=== PATIENT | female | born 1990 | race Caucasian/White ===

== ENCOUNTER 2016-11-13 06:34 | Emergency (ER) | payer OTHER ==
[~2016-11-13] VITALS: Ht 160 cm; Wt 53.1 kg
[~2016-11-13 06:34] MED LIST: IBUPROFEN800 M1 PO; KEFLEX500 M1 PO; NITROFURANTOIN100 M6 PO; PROBIOTIC1 EACH PO; ZOFRAN ODT4 M1 PO
[2016-11-13 06:48] VITALS: BP 120/74
--- NOTE | 2016-11-13 07:20 | ED GENERAL ADULT ---
See Addendum History of Present Illness General Chief Complaint: Fever Stated Complaint: FEVER, QUIJANO Source: patient Exam Limitations: no limitations Vital Signs & Intake/Output Vital Signs & Intake/Output Vital Signs Date Time Temp Pulse Resp B/P B/P Pulse O2 O2 Flow FiO2 Mean Ox Delivery Rate 11/13 0648 97.1 114 18 120/74 99 Room Air Allergies Coded Allergies: sulfamethoxazole (From BACTRIM) (CHILDHOOD ALLERGY 03/06/16) trimethoprim (From BACTRIM) (CHILDHOOD ALLERGY 03/06/16) Uncoded Allergies: ENVIRONMENTAL ALLERGIES (Severe, BREAK OUT IN HIVES 02/25/12) CONTROL (PER PT WAS PRESCRIBED 3 DIFFERENT KINDS AND UNSURE 03/06/16) Reconcile Medications Cephalexin (Keflex) 500 MG CAPSULE 1 CAP PO TID UTI Ibuprofen 800 MG TABLET 1 TAB PO Q8 PRN PAIN/FEVERS Lactobacillus Acidophilus (Probiotic) 10 BILLION CELL CAPSULE 1 CAP PO DAILY PROBIOTIC (Reported) Nitrofurantoin Monohyd/M-Cryst (Nitrofurantoin Archer-Mcr 100 MG) 100 MG CAPSULE 1 CAP PO BID ANTIBIOTIC (Reported) Ondansetron (Zofran Odt) 4 MG TAB.RAPDIS 1 TAB PO Q8H PRN NAUSEA Triage Note: STARTED HAVING HEADACHE YESTERDAY THEN DEVELOPED FEVER OF UP TO 100.6 Triage Nurses Notes Reviewed? yes Onset: Abrupt Duration: hour(s): Timing: recent history : No Patient currently breastfeeds: No HPI: 11/13/16 7:32 AM 26-year-old female presents to the emergency department for fever and malaise. According to the patient she was in her usual state of health until the end of last week when she developed some diarrhea and abdominal cramps. This resolved. Now over the past 24 hours she's had low-grade fever and a mild frontal headache. The fever was 101. She denies cough, abdominal pain, dysuria, rash or other complaints. The onset of the symptoms was abrupt, the duration has been the past several days, the severity significant as her symptoms required her to come to the emergency department for care. She has a past medical history of posttraumatic stress disorder. This was related to her finding out that her had HIV. She has been tested several times including recently and these have all come back negative according to the patient. Past History Travel History Traveled to [place] past 21 day No Medical History Any Pertinent Medical History? 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 No Review of Systems Review of Systems Constitutional: Reports: no symptoms. Respiratory: Denies: cough, short of breath. Cardiovascular: Reports: no symptoms. GI: Reports: no symptoms. Genitourinary: Reports: no symptoms. Musculoskeletal: Reports: no symptoms. Skin: Reports: no symptoms. Neurological/Psychological: Reports: headache. Hematologic/Endocrine: Reports: no symptoms. Immunologic/Allergic: Reports: no symptoms. All Other Systems: Reviewed and Negative Physical Exam Physical Exam General Appearance: well developed/nourished, alert, awake, anxious, mild distress Head: atraumatic, normal appearance Eyes: Bilateral: normal appearance, EOMI. Ears, Nose, Throat: pharyngeal erythema Neck: normal inspection, supple Respiratory: normal breath sounds, chest non-tender, no respiratory distress Cardiovascular: regular rate/rhythm Peripheral Pulses: 4+ radial (R), 4+ radial (L) Gastrointestinal: soft, non-tender Back: normal inspection Extremities: normal inspection, normal capillary refill, normal range of motion Neurologic/Psych: no motor/sensory deficits, awake, alert, oriented x 3 Skin: intact, normal color, warm/dry Comments: No nuchal rigidity, negative Kernig's or Brudzinski sign. No rash Physical exam unremarkable other than mild pharyngeal erythema Labs have been sent and a quick strep was ordered Core Measures ACS in differential dx? No CVA/TIA Diagnosis: No Severe Sepsis Present: No Septic Shock Present: No Progress Differential Diagnoses I considered the following diagnoses in my evaluation of the patient: [Viral syndrome, pharyngitis, Lyme disease, anaplasmosis, pneumonia, bronchitis, meningitis, sinusitis] Plan of Care: Orders Procedure Date/time Status THROAT CULTURE W/QUICK STREP 11/13 730 Active LYME TITRE 11/13 730 Active HUMAN BETA HCG SCREEN 11/13 730 Complete COMPREHENSIVE METABOLIC PANEL 11/13 730 Complete CBC WITHOUT DIFFERENTIAL 11/13 730 Active Laboratory Tests 11/13/16 0746: Anion Gap 10, Estimated GFR > 60, BUN/Creatinine Ratio 15.0, Glucose 97, Calcium 9.2, Total Bilirubin 0.8, AST 23, ALT 30, Alkaline Phosphatase 76, Total Protein 7.6, Albumin 4.6, Globulin 3.0, Albumin/Globulin Ratio 1.5, Total Beta HCG NEGATIVE, CBC w Diff MAN DIFF ORDERED, RBC 4.37, MCV 88.6, MCH 30.2, RDW 12.8, MPV 7.9, Gran % 84.8 H, Lymphocytes % 9.5 L, Monocytes % 5.3, Eosinophils % 0.1, Basophils % 0.3, Absolute Granulocytes 12.3 H, Segmented Neutrophils Pending, Absolute Lymphocytes 1.4, Absolute Monocytes 0.8 H, Absolute Eosinophils 0, Absolute Basophils 0, PUBS MCHC 34.1, Lyme Disease Antibody Pending Initial ED EKG: none Departure Departure Disposition: STILL A PATIENT Condition: Stable Clinical Impression Primary Impression: Fever Referrals: CLINTON LIND,PAPITO Guzman (PCP/Family) Departure Forms: Customer Survey General Discharge Information Comments 11/13/16 Labs reveal leukocytosis. The patient's physical exam is essentially unremarkable other than injected pharynx. Strep culture and Lyme titer are pending. She will follow-up with her doctor this week. She was empirically treated with amoxicillin 500 mg twice a day for 10 days. Critical Care Note Critical Care Note Critical Care Time: non-applicable
[2016-11-13 08:11] LABS: ABSOLUTE BASOPHIL COUNT 0 /CUMM (0.0-0.2); ABSOLUTE EOSINOPHIL COUNT 0 /CUMM (0.0-0.7); ABSOLUTE GRANULOCYTE CT 12.3 /CUMM (1.4-6.5); ABSOLUTE LYMPH COUNT 1.4 /CUMM (1.2-3.4); ABSOLUTE MONOCYTE COUNT 0.8 /CUMM (0.10-0.60); BASOPHIL % 0.3 % (0.0-2.0); EOSINOPHIL % 0.1 % (0-5); GRANULOCYTE % 84.8 % (42.2-75.2); HEMATOCRIT 38.7 % (37-47); MEAN CORPUSCULAR HGB 30.2 PG (27.0-31.0); MEAN CORPUSCULAR HGB CONC 34.1 G/DL (33.0-37.0); MEAN CORPUSCULAR VOLUME 88.6 FL (81.0-99.0); MEAN PLATELET VOLUME 7.9 FL (7.4-10.4); PLATELET COUNT 268 /CUMM (130-400); RBC DISTRIBUTION WIDTH 12.8 % (11.5-14.5); RED BLOOD CELL CT 4.37 /CUMM (4.20-5.40); WHITE BLOOD CELL COUNT 14.5 /CUMM (4.8-10.8)
== END 2016-11-13 09:52 ==
LOC: ERH 06:34
PROVIDERS: Emergency Medicine
DX: R50.9 Fever, unspecified (principal); R11.0 Nausea; D72.829 Elevated white blood cell count, unspecified
CPT/HCPCS: 86618

== ENCOUNTER 2018-01-09 22:25 | Emergency (ER) | payer OTHER ==
[~2018-01-09] VITALS: Ht 160 cm; Wt 52.2 kg
[~2018-01-09 22:25] MED LIST changes: +GABAPENTIN100 M2 PO; +ZOFRAN ODT4 M1 SL
--- NOTE | 2018-01-09 23:44 | ED CARDIAC/CP/PALPITATIONS ---
History of Present Illness General Chief Complaint: Chest Pain Stated Complaint: CP Source: patient Exam Limitations: no limitations Allergies Coded Allergies: sulfamethoxazole (From BACTRIM) (CHILDHOOD ALLERGY 03/06/16) trimethoprim (From BACTRIM) (CHILDHOOD ALLERGY 03/06/16) Uncoded Allergies: ENVIRONMENTAL ALLERGIES (Severe, BREAK OUT IN HIVES 02/25/12) CONTROL (PER PT WAS PRESCRIBED 3 DIFFERENT KINDS AND UNSURE 03/06/16) Reconcile Medications Lactobacillus Acidophilus (Probiotic) 10 BILLION CELL CAPSULE 1 CAP PO DAILY PROBIOTIC (Reported) Metoprolol Tartrate 25 MG TABLET 1 TAB PO BID PRN palpitations May repeat 1 tab in 45 minutes if still with rapid HR Triage Note: PT TO TRIAGE 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 PT STATES THE PAST TWO DAYS SHE HAS HAD MIDSUBSTERNAL NONRADIATING CP AND A FAST HR EVEN AT REST. HR IN TRIAGE 112. PT REPORTS SOB WITH EXERTION. EKG READING SINUS TACH. Triage Nurses Notes Reviewed? 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 Patient states that prior to having surgery she would have on and off tachycardia and symptoms related to her condition. She is early gone through one procedure on the right side of her neck and did well postop. Since yesterday patient has had tachycardia even while at rest and reports fluttering sensation substernally. Patient is very tearful at this time, she does report increasing stress regarding her tachycardia. 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 (Jasmyne MCGINNIS,Beth Blancas) Vital Signs & Intake/Output Vital Signs & Intake/Output Vital Signs Date Time Temp Pulse Resp B/P B/P Pulse O2 O2 Flow FiO2 Mean Ox Delivery Rate 01/10 0253 95 118/64 01/10 0253 98.1 95 16 118/64 97 Room Air 01/10 0128 96 (Jenifer LIND,Jose) Past History Travel History Traveled to [place] past 21 day No Medical History Any Pertinent Medical History? 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 No (Beth Mckee) Review of Systems Review of Systems Constitutional: Reports: no symptoms. EENTM: Reports: no symptoms. Respiratory: Reports: no symptoms. Cardiovascular: Reports: see HPI. GI: Reports: no symptoms. Genitourinary: Reports: no symptoms. Musculoskeletal: Reports: no symptoms. Skin: Reports: no symptoms. Neurological/Psychological: Reports: no symptoms. Hematologic/Endocrine: Reports: no symptoms. Immunologic/Allergic: Reports: no symptoms. All Other Systems: Reviewed and Negative (Beth Mckee) Physical Exam Physical Exam General Appearance: well developed/nourished, no apparent distress, alert, awake , anxious Head: atraumatic, normal appearance Eyes: Bilateral: normal appearance. Ears, Nose, Throat: hearing grossly normal Neck: normal inspection, supple, full range of motion Respiratory: normal breath sounds, no respiratory distress, lungs clear Cardiovascular: tachycardia Back: normal inspection, normal range of motion Neurologic/Psych: awake, alert, oriented x 3, tearful and anxious Skin: intact, normal color, warm/dry Core Measures ACS in differential dx? No CVA/TIA Diagnosis No Sepsis Present: No Sepsis Focused Exam Completed? No (Beth Mckee) Progress Differential Diagnosis: hyperkalemia, hyperventilation, PSVT, pulmonary embolism , anxiety, eagles syndrome Diagnostic Imaging: Viewed by Me: Radiology Read. Discussed w/RAD: Radiology Read. CXR Impression: PATIENT: JESSE ABDALLA PRESENT AGE: 27 PATIENT ACCOUNT NO: [id number] : 89 LOCATION: [facility] ORDERING PHYSICIAN: Beth MCGINNIS SERVICE DATE: 01/09/186170 EXAM TYPE: RAD - XRY-CHEST XRAY, TWO VIEWS EXAMINATION: XR CHEST CLINICAL INFORMATION: Shortness of breath. Chest pain. COMPARISON: Chest x-ray February 25, 2012 TECHNIQUE: 2 views of the chest were obtained. FINDINGS: No significant abnormality is noted involving the heart, lungs, mediastinum, bony thorax or soft tissues. IMPRESSION: Unremarkable examination. DICTATED BY: Shemar Tom MD DATE/TIME DICTATED:01/10/1844 HUMANITIES DIVISION CHAIR:KAROLINA DATE/TIME TRANSCRIBED:01/10/1844 CONFIDENTIAL, DO NOT COPY WITHOUT APPROPRIATE AUTHORIZATION. <Electronically signed in Other Vendor System> SIGNED BY: Shemar Tom MD 01/10/1848 Initial ED EKG: sinus tachycardia @104bpm, nonspecific ST changes Hand-Off Endorsed To: Jose Burgess MD Endorsed Time: 0124 Pending: labs (Beth Mckee) Plan of Care: Orders Procedure Date/time Status D-DIMER 01/09 2350 Complete Given tachycardia following the patient's recent surgery will obtain d-dimer to assess for pulmonary embolism. Patient is very anxious, almost tearful on exam. I offered her anxiolytics however she declines. EKG shows sinus tachycardia. Chest x-ray is stable. Troponin enzyme negative. Patient was signed out to Dr. gage pending d-dimer. (Beth Mckee) (Jose Burgess MD) Departure Departure Disposition: HOME OR SELF CARE Condition: Stable Clinical Impression Primary Impression: Tachycardia Referrals: Patient Has No Primary Care Dr (PCP/Family) Additional Instructions: Increase fluids and rest. Follow-up with your doctor. Return if worsening symptoms or concerns. Please note that there might be incidental findings in your evaluation that are unrelated to the current emergency department visit. Please notify your primary care doctor about this emergency department visit in order to obtain and review all of the testing performed so that these incidental findings can be monitored as needed. If you had an x-ray performed, please understand that some fractures may not be seen on the initial set of x-rays. If your symptoms persist you might need a repeat set of x-rays to check for such a fracture. If you had a laceration evaluated, please understand that foreign bodies such as glass or wood may not be visible to the naked eye or on plain x-rays. If the wound becomes red, swollen, increasingly more painful or if there is any drainage from the wound, please have it reevaluated by a physician for the possibility of a retained foreign body. If you're unable to follow up as outlined in the discharge instructions please return to the emergency department. Thank you for choosing the [facility] Emergency Department for your care. It was a pleasure to serve you today. Departure Forms: Customer Survey General Discharge Information (Beth Mckee) Departure Prescriptions: Current Visit Scripts Metoprolol Tartrate 1 TAB PO BID PRN palpitations #50 TAB May repeat 1 tab in 45 minutes if still with rapid HR PA/DETECTIVE CHIEF Co-Sign Statement Statement: ED Attending supervision documentation- I saw and evaluated the patient. I have also reviewed all the pertinent lab results and diagnostic results. I agree with the findings and the plan of care as documented in the PA's/DETECTIVE CHIEF's documentation. x I have reviewed the ED Record and agree with the PA's/DETECTIVE CHIEF's documentation. [] Additions or exceptions (if any) to the PAs/DETECTIVE CHIEF's note and plan are summarized below: [] (Jose Burgess MD) Critical Care Note Critical Care Note Critical Care Time: non-applicable (Jose Burgess MD) all of the testing performed so that these incidental findings can be monitored as needed. If you had an x-ray performed, please understand that some fractures may not be seen on the initial set of x-rays. If your symptoms persist you might need a repeat set of x-rays to check for such a fracture. If you had a laceration evaluated, please understand that foreign bodies such as glass or wood may not be visible to the naked eye or on plain x-rays. If the wound becomes red, swollen, increasingly more painful or if there is any drainage from the wound, please have it reevaluated by a physician for the possibility of a retained foreign body. If you're unable to follow up as outlined in the discharge instructions please return to the emergency department. Thank you for choosing the [facility] Emergency Department for your care. It was a pleasure to serve you today. Departure Forms: Customer Survey General Discharge Information (Beth Mckee) Departure Prescriptions: Current Visit Scripts Metoprolol Tartrate 1 TAB PO BID PRN palpitations #50 TAB May repeat 1 tab in 45 minutes if still with rapid HR PA/DETECTIVE CHIEF Co-Sign Statement Statement: ED Attending supervision documentation- I saw and evaluated the patient. I have also reviewed all the pertinent lab results and diagnostic results. I agree with the findings and the plan of care as documented in the PA's/DETECTIVE CHIEF's documentation. x I have reviewed the ED Record and agree with the PA's/DETECTIVE CHIEF's documentation. [] Additions or exceptions (if any) to the PAs/DETECTIVE CHIEF's note and plan are summarized below: [] (Jenifer LIND,Jose) Critical Care Note Critical Care Note Critical Care Time: non-applicable (Jose Burgess MD)
[2018-01-10 00:11] LABS: ABSOLUTE BASOPHIL COUNT 0 /CUMM (0.0-0.2); ABSOLUTE EOSINOPHIL COUNT 0.5 /CUMM (0.0-0.7); ABSOLUTE GRANULOCYTE CT 6.5 /CUMM (1.4-6.5); ABSOLUTE MONOCYTE COUNT 0.8 /CUMM (0.10-0.60); BASOPHIL % 0.4 % (0.0-2.0); EOSINOPHIL % 4.9 % (0-5); GRANULOCYTE % 60.1 % (42.2-75.2); MEAN CORPUSCULAR HGB 30.2 PG (27.0-31.0); MEAN CORPUSCULAR HGB CONC 34.4 G/DL (33.0-37.0); MEAN CORPUSCULAR VOLUME 87.7 FL (81.0-99.0); MEAN PLATELET VOLUME 7.6 FL (7.4-10.4); PLATELET COUNT 302 /CUMM (130-400); RED BLOOD CELL CT 4.22 /CUMM (4.20-5.40); WHITE BLOOD CELL COUNT 10.7 /CUMM (4.8-10.8)
--- NOTE | 2018-01-10 00:49 | RADIOLOGY REPORT ---
EXAMINATION: XR CHEST CLINICAL INFORMATION: Shortness of breath. Chest pain. COMPARISON: Chest x-ray February 25, 2012 TECHNIQUE: 2 views of the chest were obtained. FINDINGS: No significant abnormality is noted involving the heart, lungs, mediastinum, bony thorax or soft tissues. IMPRESSION: Unremarkable examination.
[2018-01-10] MEDS ORDERED: METOPROLOL TART25 M1 PO (02:47)
[2018-01-10 02:53] VITALS: BP 118/64
== END 2018-01-10 02:56 ==
LOC: ERH 22:25
PROVIDERS: Emergency Medicine
DX: R00.0 Tachycardia, unspecified (principal)
CPT/HCPCS: 71046; 81025; 93005; 93010